=== PATIENT | female | born 1935 | race Caucasian/White ===

== ENCOUNTER → 2016-04-12 | Outpatient (CLI) | payer MEDICARE ==
[~2016-04-12] MED LIST: ALBU1AER INH; APIX5TAB PO; ATEN1TAB73 PO; ATEN25TA PO; COZA50TA PO; CYAN100015 PO; FISHCAP4 PO; FORT600S; GABA300C3 PO; GABA600T PO; HYDR12.56 PO; LACTCAP8 PO; MODU550 PO; MONT10TA2 PO; OMEG100010 PO; OMEGCAP PO; OYST1TAB PO; OYST500T71 PO; POTA-267 PO; PROT40TA PO; SIMV40TA PO; ST JTAB PO; SULF1TAB47 PO; TEMA30CA PO; TRAM50TA PO; VITA2000 PO; VITA250T3 PO; ZOLE5INJ IV
[2016-04-12 09:14] LABS: HEMATOCRIT 36.7 % (35.0-46.0); MEAN CELL VOLUME 93.2 FL (80.0-100.0); MEAN CORPUSCULAR HEMOGLOBIN 32.4 PG (27.0-34.0); MEAN CORPUSCULAR HGB CONC 34.7 % (32.0-36.0); PLATELET COUNT 231 TH/MM3 (150-450); RED BLOOD COUNT 3.94 MIL/MM3 (4.00-5.30); RED CELL DISTRIBUTION WIDTH 12.9 % (11.6-17.2); REVIEW FLAG FINAL; WHITE BLOOD COUNT 5.1 TH/MM3 (4.0-11.0)
[2016-04-12 09:46] LABS: ALKALINE PHOSPHATASE 71 U/L (45-117); ALT (GPT) 18 U/L (10-53); ANION GAP 7 MEQ/L (5-15); AST (GOT) 24 U/L (15-37); BICARBONATE 30.4 MEQ/L (21.0-32.0); BLOOD UREA NITROGEN 7 MG/DL (7-18); CHLORIDE 101 MEQ/L (98-107); GLOMERULAR FILTRATION RATE 95 ML/MIN (>89); GLUCOSE,FASTING 66 MG/DL (74-99); HDL CHOLESTEROL 69.7 MG/DL (40.0-60.0); LDL CHOLESTEROL 48 MG/DL (0-99); LDL CHOLESTEROL DIRECT 62 MG/DL (0-99); POTASSIUM 4.6 MEQ/L (3.5-5.1); SODIUM (NA) 138 MEQ/L (136-145); TOTAL BILIRUBIN ADULT 0.7 MG/DL (0.2-1.0)
[2016-04-12 11:10] LABS: BLOOD, URINE NEG (NEG); GLUCOSE,URINE NEG (NEG); HYALINE CAST, URINE 1 /lpf (RARE); KETONE, URINE NEG (NEG); MUCUS URINE FEW /lpf (OCC); NITRITE,URINE NEG (NEG); PH, URINE 7.5 (5.0-8.5); SQUAMOUS EPITHELIAL CELL URINE 1 /hpf (0-5); URINE COLOR LIGHT-YELLOW (YELLW/STRAW)
== END ==
LOC: PLAB 07:36
PROVIDERS: ATTEND Family Medicine
DX: E89.89 Other postprocedural endocrine and metabolic complications and disorders (principal); E78.2 Mixed hyperlipidemia; I10 Essential (primary) hypertension
CPT/HCPCS: 36415; 80053; 80061; 81001; 83721; 85027

== ENCOUNTER → 2016-07-14 | Outpatient (CLI) | payer MEDICARE ==
[2016-07-14 14:13] LABS: ALT (GPT) 19 U/L (10-53); ANION GAP 7 MEQ/L (5-15); AST (GOT) 27 U/L (15-37); BICARBONATE 30.2 MEQ/L (21.0-32.0); BLOOD UREA NITROGEN 4 MG/DL (7-18); CHLORIDE 93 MEQ/L (98-107); GLOMERULAR FILTRATION RATE 122 ML/MIN (>89); GLUCOSE,FASTING 72 MG/DL (74-99); POTASSIUM 4.1 MEQ/L (3.5-5.1); SODIUM (NA) 130 MEQ/L (136-145)
[2016-07-14 14:16] LABS: ALKALINE PHOSPHATASE 76 U/L (45-117); TOTAL BILIRUBIN ADULT 0.5 MG/DL (0.2-1.0)
[2016-07-21 11:53] LABS: N-TELOPEPTIDE NTX 11 nmol/mmo (4-64)
== END ==
LOC: PLAB 10:37
PROVIDERS: ATTEND Internal Medicine Endocrinology, Diabetes & Metabolism
DX: E55.9 Vitamin D deficiency, unspecified (principal); M81.0 Age-related osteoporosis without current pathological fracture
CPT/HCPCS: 36415; 80053; 82306; 82523

== ENCOUNTER → 2016-10-25 | Outpatient (CLI) | payer MEDICARE ==
[~2016-10-25] MED LIST changes: +ALBUAER3 INH; +AMIL5 PO; -ATEN1TAB73 PO; +CALC500T37 PO; -FORT600S; -GABA300C3 PO; -HYDR12.56 PO; +LOSA100T PO; +MONT10TA4 PO; -OMEG100010 PO; -OYST500T71 PO; -POTA-267 PO; -PROT40TA PO; -ST JTAB PO; -SULF1TAB47 PO; +TYLE325T PO; +VITA100021 SL
[2016-10-25 10:55] LABS: AUTOMATED NEUTROPHIL # 3.4 TH/MM3 (1.8-7.7); BASOPHIL % 0.9 % (0.0-2.0); EOSINOPHIL # 0.2 TH/MM3 (0-0.4); EOSINOPHIL % 3.6 % (0.0-4.0); HEMATOCRIT 35.9 % (35.0-46.0); HEMO FLAGS DIFF FINAL; LYMPH % 18.3 % (9.0-44.0); LYMPHOCYTE # 0.9 TH/MM3 (1.0-4.8); MEAN CELL VOLUME 94.6 FL (80.0-100.0); MEAN CORPUSCULAR HEMOGLOBIN 31.6 PG (27.0-34.0); MEAN CORPUSCULAR HGB CONC 33.4 % (32.0-36.0); MONO % 8.9 % (0.0-8.0); NEUT % 68.3 % (16.0-70.0); PLATELET COUNT 315 TH/MM3 (150-450); RED BLOOD COUNT 3.79 MIL/MM3 (4.00-5.30); RED CELL DISTRIBUTION WIDTH 13.4 % (11.6-17.2); WHITE BLOOD COUNT 4.9 TH/MM3 (4.0-11.0)
[2016-10-25 11:14] LABS: ANION GAP 7 MEQ/L (5-15); AST (GOT) 19 U/L (15-37); BICARBONATE 28.2 MEQ/L (21.0-32.0); BLOOD UREA NITROGEN 10 MG/DL (7-18); CHLORIDE 99 MEQ/L (98-107); GLOMERULAR FILTRATION RATE 112 ML/MIN (>89); GLUCOSE,FASTING 76 MG/DL (74-99); POTASSIUM 4.3 MEQ/L (3.5-5.1); SODIUM (NA) 134 MEQ/L (136-145)
[2016-10-25 11:19] LABS: ALKALINE PHOSPHATASE 72 U/L (45-117); ALT (GPT) 13 U/L (10-53); HDL CHOLESTEROL 52.1 MG/DL (40.0-60.0); LDL CHOLESTEROL 49 MG/DL (0-99); TOTAL BILIRUBIN ADULT 0.4 MG/DL (0.2-1.0)
== END ==
LOC: PLAB 08:54
PROVIDERS: ATTEND Family Medicine
DX: E78.5 Hyperlipidemia, unspecified (principal); I10 Essential (primary) hypertension; E83.42 Hypomagnesemia
CPT/HCPCS: 36415; 80053; 80061; 83735; 85025

== ENCOUNTER → 2016-10-26 | Outpatient (CLI) | payer MEDICARE ==
[2016-10-26 18:19] LABS: RHEUMATOID FACTOR TRIGGER 13.6 IU/ML (0.0-14.9)
== END ==
LOC: PLAB 14:41
PROVIDERS: ATTEND Family Medicine
DX: G25.0 Essential tremor (principal); R53.83 Other fatigue; I10 Essential (primary) hypertension; M06.4 Inflammatory polyarthropathy
CPT/HCPCS: 36415; 84443; 85652; 86140; 86200; 86430

== ENCOUNTER 2016-12-21 14:06 | Emergency (ER) | payer MEDICARE ==
[~2016-12-21] VITALS: Ht 154.9 cm; Wt 58.0 kg
[~2016-12-21 14:06] MED LIST changes: -ALBUAER3 INH; -AMIL5 PO; -CALC500T37 PO; -FISHCAP4 PO; -LOSA100T PO; -MONT10TA4 PO; -TYLE325T PO; -VITA100021 SL
[2016-12-21 14:36] VITALS: BP 134/64; PULSE 88; RESP 16; TEMP 99.5; O2SAT 96
--- NOTE | 2016-12-21 16:05 | PD ---
HPI Chief Complaint: right leg pain Time Seen by Provider: 15:52 Travel History International Travel<30 days: No Contact w/Intl Traveler<30days: No Traveled to known affect area: No History of Present Illness HPI 81yo F with PMH on left DVT on eliquis, arthritis in bilateral knees presents to the ED with c/o right leg pain. States she has posterior right leg and knee for 3 days. Also noticed swelling in right knee for 1.5 days. States she has severe arthritis in right knee and has been cleaning more rigorous recently. Denies any fever, trauma, chest pain, sob, n/v, abdominal pain, focal weakness or numbness. PFSH Past Medical History Hx Anticoagulant Therapy: Yes Arthritis: Yes Asthma: Yes Autoimmune Disease: No Blood Disorders: No Anxiety: Yes Depression: Yes Heart Rhythm Problems: No Cancer: Yes (LUNG) Cardiovascular Problems: Yes (htn on meds, a-fib) High Cholesterol: Yes Chemotherapy: No Chest Pain: No Congestive Heart Failure: No COPD: Yes Cerebrovascular Accident: Yes (tia's) Diabetes: No Diminished Hearing: No Endocrine: No Gastrointestinal Disorders: Yes (BLEEDING ULCERS,DIVERTICULITIS,HEMORRHOIDS) GERD: Yes Glaucoma: No Genitourinary: No Headaches: No Hepatitis: No Hiatal Hernia: Yes Hypertension: Yes Immune Disorder: No Kidney Stones: No Musculoskeletal: Yes Neurologic: Yes (PERIPHERAL NEUROPATHY) Psychiatric: Yes Reproductive: No Respiratory: Yes Immunizations Current: Yes Migraines: No Myocardial Infarction: No Radiation Therapy: No Renal Failure: No Seizures: No Sleep Apnea: No Thyroid Disease: No Ulcer: Yes Influenza Vaccination: Yes ?: Not Menopausal: Yes Past Surgical History Abdominal Surgery: No AICD: No Appendectomy: No Arteriovenous Shunt: No Cardiac Surgery: No Cholecystectomy: No Ear Surgery: No Endocrine Surgery: No Eye Surgery: No Genitourinary Surgery: No Gynecologic Surgery: No Insulin Pump: No Joint Replacement: No Oral Surgery: No Pacemaker: No Thoracic Surgery: Yes (RIGHT UPPER LOBECTOMY) Other Surgery: Yes (HAND SURGERY AND FOOT SURGERY FOR NEUROMA REMOVAL MANY YEARS AGO) Social History Alcohol Use: No Tobacco Use: No Substance Use: No Allergies-Medications (Allergen,Severity, Reaction): Coded Allergies: cefaclor (Unverified Allergy, Severe, HIVES, 12/21/16) hives Reported Meds & Prescriptions Reported Meds & Active Scripts Active Reported Fish Oil + D3 (Fish Oil-Cholecalciferol) 1,200-1,000 Mg-Unit Cap 1 Cap PO DAILY Vitamin B-12 (Cyanocobalamin) 1,000 Mcg Subl 1,000 Mcg SL DAILY Calcium Ascorbate 500 Mg Tab 500 Mg PO DAILY Montelukast (Montelukast Sodium) 10 Mg Tab 10 Mg PO HS Tramadol (Tramadol HCl) 50 Mg Tab 50 Mg PO Q4H PRN Temazepam 30 Mg Cap 30 Mg PO HS PRN Simvastatin 40 Mg Tab 40 Mg PO HS Proair Hfa 8.5 GM Inh (Albuterol Sulfate) 90 Mcg/Act Aer 1 Puff INH Q4H PRN 108 mcg/actuation Losartan (Losartan Potassium) 100 Mg Tab 100 Mg PO DAILY Gabapentin 600 Mg Tab 600 Mg PO TID Eliquis (Apixaban) 5 Mg Tab 5 Mg PO BID Atenolol 25 Mg Tab 12.5 Mg PO DAILY Amiloride (Amiloride HCl) 5 Mg Tab 5 Mg PO DAILY Vitamin D3 (Cholecalciferol) 2,000 Unit Cap 2,000 Units PO DAILY Review of Systems Except as stated in HPI: all other systems reviewed are Neg Physical Exam Narrative GENERAL: 81yo F in mild distress. SKIN: Focused skin assessment warm/dry. HEAD: Atraumatic. Normocephalic. CARDIOVASCULAR: Regular rate and rhythm. No murmur appreciated. RESPIRATORY: No accessory muscle use. Clear to auscultation. Breath sounds equal bilaterally. GASTROINTESTINAL: Abdomen soft, non-tender, nondistended. MUSCULOSKELETAL: RLE: +TTP posterior thigh and calf. Right knee: +Warmth to touch, no erythema. +Effusion. +TTP diffusely. Distal pulses intact. Sensation intact. NEUROLOGICAL: Awake and alert. No obvious cranial nerve deficits. Motor grossly within normal limits. Normal speech. PSYCHIATRIC: Appropriate mood and affect; insight and judgment normal. Data Data Last Documented VS Vital Signs Date Time Temp Pulse Resp B/P (MAP) Pulse Ox O2 Delivery O2 Flow Rate FiO2 12/21/16 17:34 82 18 133/68 (89) 96 Room Air 12/21/16 14:36 99.5 Orders Orders Us Leg Venous Doppler (12/21/16 ) Knee, Ltd (1 Or 2vws) (12/21/16 ) Acetamin-Hydrocod 325-5 Mg ([place] 5-325 (12/21/16 17:45) [facility] Medical Decision Making Medical Screen Exam Complete: Yes Emergency Medical Condition: Yes Differential Diagnosis DVT vs. musculoskeletal pain vs. wolfe cyst vs. arthritis vs. ligament injury Narrative Course 81yo F with arthritis in her knees and history of DVT here with right leg pain. Xray right knee showed joint effusion with degenerative changes. No fracture. US right leg showed no venous thrombosis. 4.5 center popliteal cyst. Pt given lortab and reevaluated at bedside. Said knee pain has improved. Pt able to move right knee more. Pt has orthopedic surgeon to followup with. Instructed pt to return immediately if fever, worsening pain, redness or any signs of infection. Pt wants to go home. Diagnosis Primary Impression: Knee pain, acute Qualified Codes: M25.561 - Pain in right knee Patient Instructions: General Instructions Departure Forms: Tests/Procedures Additional Instructions: Please follow up with your primary care physician or orthopedic surgeon in 1-2 days. Return to the ED if symptoms worsen. Med/Other Pt SpecificInfo: Prescription(s) given Scripts Acetaminophen (Tylenol) 325 Mg Tab 650 MG PO Q6H Y for PAIN SCALE 1 TO 4, #20 TAB 0 Refills Prov: Betzy Dunbar 12/21/16 Disposition: 01 DISCHARGE HOME Condition: Stable Betzy Dunbar DO Dec 21, 2016 16:05
[2016-12-21] MEDS ORDERED: TRAM50TA PO (16:08)
[2016-12-21] MEDS ORDERED: LOSA100T PO (16:08)
[2016-12-21] MEDS ORDERED: GABA600T PO (16:08)
[2016-12-21] MEDS ORDERED: SIMV40TA PO (16:08)
[2016-12-21] MEDS ORDERED: MONT10TA4 PO (16:08)
[2016-12-21] MEDS ORDERED: AMIL5 PO (16:08)
[2016-12-21] MEDS ORDERED: TEMA30CA PO (16:08)
[2016-12-21] MEDS ORDERED: ATEN25TA PO (16:08)
[2016-12-21] MEDS ORDERED: APIX5TAB PO (16:08)
[2016-12-21] MEDS ORDERED: CALC500T37 PO (16:08)
[2016-12-21] MEDS ORDERED: ALBUAER3 INH (16:08)
[2016-12-21] MEDS ORDERED: VITA100021 SL (16:09)
[2016-12-21] MEDS ORDERED: FISHCAP4 PO (16:09)
--- NOTE | 2016-12-21 17:10 | RADRPT ---
EXAM DATE/TIME: 12/21/2016 16:32 [facility] COMPARISON: No previous studies available for comparison. INDICATIONS : Right knee pain from unknown injury. MEDICAL HISTORY : None. SURGICAL HISTORY : None. ENCOUNTER: Initial ACUITY: 3 days PAIN SCORE: 7/10 LOCATION: Right knee. FINDINGS: Large joint effusion is evident. Degenerative changes are present in the patellofemoral compartment. There is marked loss of articular cartilage in the medial compartment. Fracture not appreciated. CONCLUSION: Joint effusion with degenerative changes. No fracture. Rigoberto Miranda MD FACR on December 21, 2016 at 17:08 Board Certified Radiologist. This report was verified electronically.
[2016-12-21 17:34] VITALS: BP 133/68; PULSE 82; RESP 18; O2SAT 96
--- NOTE | 2016-12-21 17:44 | RADRPT ---
EXAM DATE/TIME: 12/21/2016 17:09 [facility] COMPARISON: No previous studies available for comparison. INDICATIONS : Right leg pain. MEDICAL HISTORY : Hypertension. Hypercholesterolemia. Diverticulitis. Peripheral neuropathy. CVA. COPD. Hiatal he rnia. GERD. Lung cancer. SURGICAL HISTORY : Right upper lobectomy. Bilateral parsons's neuroma and repair. ENCOUNTER: Subsequent ACUITY: 4 - 6 days PAIN SCORE: 10/10 LOCATION: Right leg. TECHNIQUE: Venous ultrasound of the leg was performed from the inguinal ligament to the proximal calf. Real-haylee e, color Doppler and spectral tracing, compression and augmentation techniques were used. FINDINGS: There is normal compressibility of the deep venous system from the inguinal region to the proximal ca lf. No echogenic clot is seen in the lumen of the common femoral, femoral, popliteal, and posterior tibial veins. There is a normal response of the venous system to proximal and distal augmentation an d respiration. 4.5 cm popliteal cyst. CONCLUSION: No venous thrombosis. 4.5 center popliteal cyst. Rigoberto Miranda MD FACR on December 21, 2016 at 17:43 on December 21, 2016 at 17: Board Certified Radiologist. This report was verified electronically.
[2016-12-21] MEDS ORDERED: ACETAMINOPHEN/HYDROcodone 325 MG/5 MG TAB PO ONE (17:45)
[2016-12-21] MEDS ORDERED: TYLE325T PO (18:30)
[2016-12-21 18:45] VITALS: RESP 18
== END 2016-12-21 18:50 | disposition home or self-care (01) ==
LOC: PHED 14:06
DX: M25.561 Pain in right knee (principal); M17.0 Bilateral primary osteoarthritis of knee; I48.91 Unspecified atrial fibrillation; I10 Essential (primary) hypertension; Z79.01 Long term (current) use of anticoagulants; Z79.899 Other long term (current) drug therapy
CPT/HCPCS: 73560; 93971; 99284

== ENCOUNTER → 2017-01-02 | Outpatient (CLI) | payer MEDICARE ==
[~2017-01-02] MED LIST changes: -ALBU1AER INH; +ALBUAER3 INH; +AMIL5 PO; +CALC500T37 PO; -COZA50TA PO; -CYAN100015 PO; +FISHCAP4 PO; -LACTCAP8 PO; +LOSA100T PO; -MODU550 PO; -MONT10TA2 PO; +MONT10TA4 PO; -OMEGCAP PO; -OYST1TAB PO; +TYLE325T PO; +VITA100021 SL; -VITA250T3 PO; -ZOLE5INJ IV
[2017-01-02 16:38] LABS: ALT (GPT) 16 U/L (10-53); ANION GAP 6 MEQ/L (5-15); AST (GOT) 23 U/L (15-37); BICARBONATE 28.5 MEQ/L (21.0-32.0); BLOOD UREA NITROGEN 8 MG/DL (7-18); CHLORIDE 100 MEQ/L (98-107); GLOMERULAR FILTRATION RATE 119 ML/MIN (>89); POTASSIUM 4.8 MEQ/L (3.5-5.1); SODIUM (NA) 134 MEQ/L (136-145)
[2017-01-02 16:40] LABS: ALKALINE PHOSPHATASE 82 U/L (45-117); TOTAL BILIRUBIN ADULT 0.5 MG/DL (0.2-1.0)
== END ==
LOC: PLAB 13:20
PROVIDERS: ATTEND Internal Medicine Endocrinology, Diabetes & Metabolism
DX: E55.9 Vitamin D deficiency, unspecified (principal); M81.0 Age-related osteoporosis without current pathological fracture
CPT/HCPCS: 36415; 80053; 82306

== ENCOUNTER → 2017-04-18 | Outpatient (CLI) | payer MEDICARE ==
[~2017-04-18] MED LIST changes: +MIDAZOLAM HCL 2 MG/2 ML VIAL ONE
[2017-04-18 10:27] LABS: AUTOMATED NEUTROPHIL # 3.3 TH/MM3 (1.8-7.7); BASOPHIL % 0.8 % (0.0-2.0); EOSINOPHIL # 0.3 TH/MM3 (0-0.4); EOSINOPHIL % 4.8 % (0.0-4.0); HEMATOCRIT 35.1 % (35.0-46.0); HEMOGLOBIN 12.1 GM/DL (11.6-15.3); LYMPH % 30.2 % (9.0-44.0); LYMPHOCYTE # 1.7 TH/MM3 (1.0-4.8); MEAN CELL VOLUME 92.1 FL (80.0-100.0); MEAN CORPUSCULAR HEMOGLOBIN 31.6 PG (27.0-34.0); MEAN CORPUSCULAR HGB CONC 34.3 % (32.0-36.0); MEAN PLATELET VOLUME 8.1 FL (7.0-11.0); MONO % 7.4 % (0.0-8.0); MONOCYTE # 0.4 TH/MM3 (0-0.9); NEUT % 56.8 % (16.0-70.0); PLATELET COUNT 266 TH/MM3 (150-450); RED BLOOD COUNT 3.81 MIL/MM3 (4.00-5.30); RED CELL DISTRIBUTION WIDTH 13.7 % (11.6-17.2); WHITE BLOOD COUNT 5.7 TH/MM3 (4.0-11.0)
[2017-04-18 10:44] LABS: BILIRUBIN, URINE NEG (NEG); BLOOD, URINE NEG (NEG); GLUCOSE,URINE NEG (NEG); HYALINE CAST, URINE 3 /lpf (RARE); KETONE, URINE NEG (NEG); NITRITE,URINE NEG (NEG); SQUAMOUS EPITHELIAL CELL URINE <1 /hpf (0-5); URINE COLOR YELLOW (YELLW/STRAW); URINE LEUKOCYTE ESTERASE NEG (NEG)
[2017-04-18 10:51] LABS: ALBUMIN 2.8 GM/DL (3.4-5.0); AST (GOT) 23 U/L (15-37); BICARBONATE 29.4 MEQ/L (21.0-32.0); BLOOD UREA NITROGEN 7 MG/DL (7-18); CALCIUM 8.9 MG/DL (8.5-10.1); CREATININE 0.53 MG/DL (0.50-1.00); GLOMERULAR FILTRATION RATE 111 ML/MIN (>89); GLUCOSE,FASTING 56 MG/DL (74-99)
[2017-04-18 10:52] LABS: CHOLESTEROL 109 MG/DL (120-200)
[2017-04-18 10:57] LABS: ALKALINE PHOSPHATASE 89 U/L (45-117); ALT (GPT) 13 U/L (10-53); CHLORIDE 105 MEQ/L (98-107); CHOLESTEROL/ HDL RATIO 2.33 RATIO; HDL CHOLESTEROL 46.6 MG/DL (40.0-60.0); LDL CHOLESTEROL 48 MG/DL (0-99); LDL CHOLESTEROL DIRECT 63 MG/DL (0-99); SODIUM (NA) 139 MEQ/L (136-145); TOTAL BILIRUBIN ADULT 0.5 MG/DL (0.2-1.0); TRIGLYCERIDES 73 MG/DL (42-150)
== END ==
LOC: PLAB 07:56
PROVIDERS: ATTEND Internal Medicine Endocrinology, Diabetes & Metabolism
DX: M81.0 Age-related osteoporosis without current pathological fracture (principal); E55.9 Vitamin D deficiency, unspecified; E78.5 Hyperlipidemia, unspecified; I10 Essential (primary) hypertension
CPT/HCPCS: 36415; 80053; 80061; 81001; 82306; 83721; 85025

== ENCOUNTER → 2017-04-21 | Outpatient (CLI) | payer MEDICARE ==
[~2017-04-21] MED LIST changes: -MIDAZOLAM HCL 2 MG/2 ML VIAL ONE
[2017-04-21 14:22] LABS: BICARBONATE 30.2 MEQ/L (21.0-32.0); CALCIUM 9.3 MG/DL (8.5-10.1); CREATININE 0.56 MG/DL (0.50-1.00)
== END ==
LOC: PLAB 10:52
PROVIDERS: ATTEND Family Medicine
DX: N18.3 Chronic kidney disease, stage 3 (moderate) (principal)
CPT/HCPCS: 36415; 80048; 82570; 84156

== ENCOUNTER → 2017-05-09 | Outpatient (CLI) | payer MEDICARE | LOC: PLAB 11:37 | PROVIDERS: ATTEND Internal Medicine Endocrinology, Diabetes & Metabolism | DX: E83.42 Hypomagnesemia (principal) | CPT/HCPCS: 36415; 83735 ==

== ENCOUNTER 2017-07-12 06:33 | Day surgery (SDC) | payer MEDICARE ==
[2017-07-12] VITALS (11 sets, daily range): BP systolic 110–143; BP diastolic 52–73; PULSE 58–69; RESP 16–19; TEMP 97.8–97.9; O2SAT 61–98
[~2017-07-12] VITALS: Ht 157.5 cm; Wt 55.5 kg
[2017-07-12] MEDS ORDERED: SODIUM CHLOR 0.9% 1000 ML INJ 1,000 ML IV ONE (07:45)
[2017-07-12] MEDS ORDERED: SODIUM CHLOR 0.9% 1000 ML INJ 1,000 ML IV SCH (07:45)
[2017-07-12] MEDS ORDERED: ROPI0.25 PO (07:47)
[2017-07-12 08:11] LABS: AUTOMATED NEUTROPHIL # 5.4 TH/MM3 (1.8-7.7); BASOPHIL # 0.1 TH/MM3 (0-0.2); BASOPHIL % 0.7 % (0.0-2.0); EOSINOPHIL # 0.2 TH/MM3 (0-0.4); EOSINOPHIL % 2.9 % (0.0-4.0); HEMATOCRIT 35.6 % (35.0-46.0); HEMOGLOBIN 12.2 GM/DL (11.6-15.3); LYMPH % 17.7 % (9.0-44.0); LYMPHOCYTE # 1.3 TH/MM3 (1.0-4.8); MEAN CELL VOLUME 91.1 FL (80.0-100.0); MEAN CORPUSCULAR HEMOGLOBIN 31.2 PG (27.0-34.0); MEAN CORPUSCULAR HGB CONC 34.3 % (32.0-36.0); MEAN PLATELET VOLUME 7.6 FL (7.0-11.0); MONO % 6.2 % (0.0-8.0); MONOCYTE # 0.5 TH/MM3 (0-0.9); NEUT % 72.5 % (16.0-70.0); PLATELET COUNT 255 TH/MM3 (150-450); RED BLOOD COUNT 3.91 MIL/MM3 (4.00-5.30); RED CELL DISTRIBUTION WIDTH 13.8 % (11.6-17.2); WHITE BLOOD COUNT 7.5 TH/MM3 (4.0-11.0)
[2017-07-12 08:21] LABS: BICARBONATE 29.2 MEQ/L (21.0-32.0); CALCIUM 9.1 MG/DL (8.5-10.1); CREATININE 0.55 MG/DL (0.50-1.00)
[2017-07-12 08:52] LABS: INTERNATIONAL NORMALIZED RATIO 1.1 RATIO; PROTHROMBIN TIME - PATIENT 10.8 SEC (9.8-11.6)
[2017-07-12] MEDS ORDERED: fentaNYL CITRATE 250 MCG/5 ML AMP ONE (09:04)
[2017-07-12] MEDS ORDERED: MIDAZOLAM HCL 5 MG/5 ML VIAL ONE (09:04)
[2017-07-12] MEDS ORDERED: diphenhydrAMINE HCL 50 MG/ML VIAL ONE (09:25)
[2017-07-12] MEDS ORDERED: HEPARIN SODIUM - IV 10,000 UNITS/10 ML VIAL ONE (09:57)
[2017-07-12] MEDS ORDERED: IODIXANOL 320 MG/ML 50 ML VIAL (for RAD SPEC) I-ARTERIAL ONE (10:00)
[2017-07-12] MEDS ORDERED: ceFAZolin 2 GM PREMIX 50 ML ONE (10:09)
--- NOTE | 2017-07-12 10:30 | PD.RAD ---
Post Procedure Progress Note Pre Procedure Diagnosis: (1) Postprandial abdominal pain in right upper quadrant Post Procedure Diagnosis: (1) SMA stenosis (2) Postprandial abdominal pain in right upper quadrant Procedure Date: July 12, 2017 Supervising Radiologist: Robert Galindo Proceduralist/Assist: Joseline Yarbrough, RT(R)(), Emma Sylvester RT(R), Other (Ramin) Anesthesia: Local, Analgesia, Conscious Sedation Plan of Activity Patient to Unit: ROPU Patient Condition: Good See PACS Report for procedural detail/treatment Vascular-Arterial Procedure Procedure 1 Procedure Site: Superior Mesenteric Artery Procedure(s): Angiogram, Stent Placement (7mm x 3cm) Access Access Site(s): Right Femoral Artery Closure Site(s): Right vascular closure device (PerClose) Findings: High grade central stenosis SMA. Post 7mm stent and 6mm ENT CONSULTANT Robert Galindo MD July 12, 2017 10:30
--- NOTE | 2017-07-12 11:33 | RADRPT ---
EXAM DATE/TIME: 07/12/2017 09:31 [facility] COMPARISON: No previous studies available for comparison. INDICATIONS : Patient with a history of abdominal pain and nausea. MEDICAL HISTORY : TIA CAD Asthma COPD Emphysema GERD HTN Osteoporosis SURGICAL HISTORY : Lobectomy Colonoscopy EGD ENCOUNTER: Initial ACUITY: 2 weeks PAIN SCORE: 0/10 FLUORO TIME: 9.6 minutes IMAGE SERIES: 17 ACCESS SITE: Right Femoral artery SEDATION TIME: 60 minutes CONTRAST: 1.) 120 cc Visipaque (iodixanol) MEDICATION(S): 1.) 2.5 mg midazolam (Versed) IV 2.) 125 mcg fentanyl (Sublimaze) IV 3.) 2,000 units Heparin IV 4.) 2 g cefazolin (Ancef) IV Intra-procedural antibiotics were given as prescribed above. DEVICE(S): 1.) Superior mesenteric artery [id number] Proteg stent (self expanding) 2.) Superior mesenteric artery [id number] Supervisor [employer] ADMINISTRATOR balloon 3.) Right common femoral artery Perclose PROCEDURE : 1. Ultrasound-guided puncture of the access site. 2. Angiography of the access site prior to closure device. 3. Conscious sedation with continuous EKG and Oximetry monitoring. 4. Percutaneous closure of the access site. 5. Angiography of the celiac axis 6. Angiography of the SMA 7. Central stent, SMA The risks, benefits and alternatives to the procedure were explained and verbal and written consent w as obtained. The site was prepped in sterile fashion. Full sterile technique was used, including ca p, mask, sterile gloves and gown and a large sterile sheet. Hand hygiene and 2% chlorhexidine and/or betadine/alcohol prep was utilized per protocol for cutaneous antisepsis. Sterile gel and sterile p robe cover were utilized for ultrasound guidance. The skin and subcutaneous tissues were infiltrated with local anesthetic solution. With ultrasound and fluoroscopic guidance the selected artery was punctured and a vascular sheath was placed. Angiography of the common femoral artery was performed for evaluation prior to percutaneous closure device placement. A hook catheter was used to select the origin of the celiac axis. Contrast injection showed the branc h vessels of the celiac all be widely patent no significant stenosis. Catheter was then manipulated i nto the SMA. Contrast injection confirmed a proximal, non-ostial high grade stenosis of the SMA. Glid ewire was advanced out into the SMA distribution to facilitate advancement of the hook catheter into the distal branch of the SMA. Wire was exchanged for a Grimaldo to facilitate placement of the 7 Stateless Rabbe sheath which was advanced into the origin of the SMA. In a lateral projection, contrast injection again showed a high grade nonostial stenosis of the SMA. Through the sheath and over the wire, a 7 mm x 30 mm self-expanding Proteg stent was advanced across the stenosis. Position was confirmed with positive contrast. Stent was deployed and balloon dilated to 6 mm with an excellent angiographic result. Patency was confirmed with positive contrast. Hemostasis was obtained with the prescribed medicated closure device. Conscious sedation was perform ed with the prescribed dosages and duration as above in the presence of an independent trained radiol ogy nurse to assist in the monitoring of the patient. EKG and oximetry remained stable throughout th e procedure. CONCLUSION: 1. Long segment, high-grade nonostial stenosis of the SMA. Celiac is patent. 2. Successful stenting of the stenotic SMA as detailed above. Robert Galindo MD on July 12, 2017 at 11:23 Board Certified Radiologist. This report was verified electronically.
[2017-07-12] MEDS ORDERED: CLOPIDOGREL 300 MG TAB PO ONE (13:30)
== END 2017-07-12 15:23 | disposition home or self-care (01) ==
LOC: HROP 06:33 → HRIP 06:38 → HROP 15:23
PROVIDERS: ATTEND Physician Assistant Medical
DX: K55.1 Chronic vascular disorders of intestine (principal); R11.0 Nausea; R10.11 Right upper quadrant pain; I25.10 Atherosclerotic heart disease of native coronary artery without angina pectoris; J44.9 Chronic obstructive pulmonary disease, unspecified; K21.9 Gastro-esophageal reflux disease without esophagitis; I10 Essential (primary) hypertension; M81.0 Age-related osteoporosis without current pathological fracture; Z86.73 Personal history of transient ischemic attack (TIA), and cerebral infarction without residual deficits; Z01.818 Encounter for other preprocedural examination
CPT/HCPCS: 36245; 37236; 75726; 75774; 76937; 80048; 85025; 85610; 85730; 99152; 99153; C1725; C1760; C1769; C1876; C1887; C1894; J0690; J1200; J1644; J2250; J3010; J7030; Q9967

== ENCOUNTER 2017-07-19 13:41 | Day surgery (SDC) | payer MEDICARE ==
[~2017-07-19 13:41] MED LIST changes: +ROPI0.25 PO; -TYLE325T PO
[2017-07-19 13:56] VITALS: BP 133/62; PULSE 59; RESP 18; TEMP 97.6; O2SAT 100
--- NOTE | 2017-07-19 15:24 | RADRPT ---
EXAM DATE/TIME: 07/19/2017 14:00 [facility] COMPARISON : No previous studies available for comparison. INDICATIONS : F/U mesenteric stent placement OBJECTIVE: Temperature: 97.6 Heart Rate: 59 Blood Pressure: 133/62 Respiratory: 18 Oximetry: 100 PNEUMONIA VACCINE: HISTORY OF PRESENT ILLNESS: 81-year-old with postprandial abdominal pain, high grade SMA stenosis recently post stent. Patient re ports no significant improvement in clinical symptoms after stent placement. No new complaints. ASSESSMENT: Patient doing well post SMA stent placement from a procedural standpoint. However, no significant imp rovement in the postprandial abdominal pain. PLAN: Followup with primary as clinically indicated. TIME SPENT: Zero minutes. Patient seen by nurse only. Robert Galindo MD on July 19, 2017 at 15:17 Board Certified Radiologist. This report was verified electronically.
== END 2017-07-19 15:16 | disposition home or self-care (01) ==
LOC: HROP 13:41 → HRIP 13:43 → HROP 15:16
PROVIDERS: ATTEND Radiology Body Imaging
DX: K55.1 Chronic vascular disorders of intestine (principal)
CPT/HCPCS: 99211; G0463

== ENCOUNTER → 2017-08-28 | Outpatient (CLI) | payer MEDICARE ==
[2017-08-28 17:49] LABS: ALBUMIN 2.9 GM/DL (3.4-5.0); AST (GOT) 16 U/L (15-37); BLOOD UREA NITROGEN 6 MG/DL (7-18); CALCIUM 9.2 MG/DL (8.5-10.1); CHLORIDE 102 MEQ/L (98-107); CREATININE 0.66 MG/DL (0.50-1.00); GLOMERULAR FILTRATION RATE 86 ML/MIN (>89); GLUCOSE,RANDOM 97 MG/DL (74-106); SODIUM (NA) 137 MEQ/L (136-145)
[2017-08-28 17:51] LABS: ALT (GPT) 17 U/L (10-53)
[2017-08-28 17:53] LABS: ALKALINE PHOSPHATASE 89 U/L (45-117); TOTAL BILIRUBIN ADULT 0.4 MG/DL (0.2-1.0); TOTAL PROTEIN 7.4 GM/DL (6.4-8.2)
== END ==
LOC: PLAB 13:54
PROVIDERS: ATTEND Internal Medicine Endocrinology, Diabetes & Metabolism
DX: M81.0 Age-related osteoporosis without current pathological fracture (principal)
CPT/HCPCS: 36415; 80053

== ENCOUNTER 2017-09-16 17:34 | Observation (INO) ==
[2017-09-16] MEDS ORDERED: dilTIAZem 30 MG Tablet PO ONE (17:55)
--- NOTE | 2017-09-16 17:55 | ED ---
HPI General Chief complaint: Chest Pain Stated complaint: Cardiac Complaint Time Seen by Provider: 09/16/17 17:49 History of Present Illness HPI narrative: Patient 81-year-old female presents emergency department for a choking sensation in her neck radiating down into her chest. Patient states it started early this morning, she sat down she took her blood pressure and was fine heart rate was fine, when it recurred this afternoon she took her heart rate and found to be in the 160s, she has been taking her Cardizem or Eliquis and her Plavix as prescribed. 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 Mesenteric artery, no dizziness no nausea vomiting no headache no fever. Related Data Home Medications Medication Instructions Recorded Confirmed amiloride 5 mg PO DAILY 09/12/17 09/12/17 apixaban [Eliquis] 5 mg PO BID 09/12/17 09/12/17 ascorbic acid (vitamin C) [Vitamin 250 mg PO DAILY 09/12/17 09/12/17 C] atenolol 12.5 mg PO DAILY 09/12/17 09/12/17 atorvastatin 20 mg PO DAILY 09/12/17 09/12/17 calcium carbonate-vit D3-min 1 tab PO DAILY 09/12/17 09/12/17 [Calcium 600 + Minerals] clopidogrel [Plavix] 75 mg PO DAILY 09/12/17 09/12/17 diltiazem HCl 180 mg PO DAILY 09/12/17 09/12/17 gabapentin 300 mg PO TID 09/12/17 09/12/17 losartan 50 mg PO DAILY 09/12/17 09/12/17 montelukast 10 mg PO QPM 09/12/17 09/12/17 ropinirole 24 mg PO DAILY PRN 09/12/17 09/12/17 temazepam 1 cap PO DAILY PRN 09/12/17 09/12/17 vitamin B complex [B 1 tab PO DAILY 09/12/17 09/12/17 Complex-Vitamin B12] zoledronic [id number] 5 mg IV DIRECTED 09/12/17 09/12/17 [Reclast] Allergies Allergy/AdvReac Type Severity Reaction Status Date / Time cefaclor Allergy Severe HIVES Verified 09/12/17 14:03 Review of Systems Except as stated in HPI: all other systems reviewed are negative PMFSH Medical History Medical History Asthma (Acute) COPD (chronic obstructive pulmonary disease) (Acute) Hyperlipemia (Acute) Hypertension (Acute) Lung cancer (Acute) Osteoarthritis (Acute) Osteoporosis (Acute) Social History Social History Substance History: No History of Abuse Second Hand Smoke Exposure: No Smoking Status: Never smoker How Often Do You Have a Drink Containing Alcohol: Never Recent Travel in [facility] within the Last 8 Weeks: No Recent Out of Country Travel within the Last 8 Weeks: No Immunization History Tetanus Immunization: <5 Years Hx Influenza Vaccine This Season: Yes Exam Narrative Exam Narrative: GENERAL: Well-developed well-nourished no obvious distress, quite pleasant peer SKIN: Focused skin assessment warm/dry. HEAD: Atraumatic. Normocephalic. EYES: Pupils equal and round. No scleral icterus. No injection or drainage. ENT: No nasal bleeding or discharge. Mucous membranes pink and moist. NECK: Trachea midline. No JVD. CARDIOVASCULAR: Irregularly irregular and tachycardic, 2+ bilateral equal pulses in all 4 extremities per no murmur appreciated. RESPIRATORY: No accessory muscle use. Clear to auscultation. Breath sounds equal bilaterally. GASTROINTESTINAL: Abdomen soft, non-tender, nondistended. Hepatic and splenic margins not palpable. MUSCULOSKELETAL: No obvious deformities. No clubbing. No cyanosis. Trace edema bilateral lower extremities. NEUROLOGICAL: Awake and alert. No obvious cranial nerve deficits. Motor grossly within normal limits. Normal speech. PSYCHIATRIC: Appropriate mood and affect; insight and judgment normal. Course Initial Documented Vital Signs Temperature 97.8 F 09/16/17 17:38 Pulse Rate 122 H 09/16/17 17:38 Respiratory Rate 15 09/16/17 17:38 Blood Pressure 139/58 L 09/16/17 17:38 Pulse Oximetry 98 09/16/17 17:38 Last Documented Vital Signs Temperature 97.8 F 09/16/17 17:38 Pulse Rate 119 H 09/16/17 17:42 Respiratory Rate 18 09/16/17 17:42 Blood Pressure 126/88 09/16/17 17:42 Pulse Oximetry 97 09/16/17 18:09 Medical Decision Making MDM Narrative Medical decision making narrative: Patient room to the emergency department, appears well in obvious distress, certainly her symptoms could be from ACS, was noted be atrial fibrillation RVR maximum rate in the ER was mid 120s, she was given additional dose of Cardizem 30 mg immediate release, seem to control her heart rate for the time being. Chest pain resolved, recommended patient be admitted for chest pain in the setting of atrial ablation RVR. Differential Diagnosis Differential Diagnosis: ACS, OH, atrial fibrillation RVR, electrolyte normality. Lab Data Result diagrams: 09/16/17 18:10 09/16/17 18:10 Lab Results 09/16/17 09/16/17 09/16/17 Range/Units 18:10 18:10 18:10 WBC 10.7 (4.0-11.0) th/mm3 RBC 3.63 L (4.00-5.30) mil/mm3 Hgb 11.6 (11.6-15.3) gm/dL Hct 33.5 L (35.0-46.0) % MCV 92.3 (80.0-100.0) fL MCH 31.9 (27.0-34.0) pg MCHC 34.6 (32.0-36.0) % RDW 14.2 (11.6-17.2) % Plt Count 382 (150-450) th/mm3 MPV 7.6 (7.0-11.0) fL Neut % (Auto) 69.6 (16.0-70.0) % Lymph % (Auto) 20.2 (9.0-44.0) % [place] % (Auto) 7.2 (0.0-8.0) % Eos % (Auto) 2.4 (0.0-4.0) % Baso % (Auto) 0.6 (0.0-2.0) % Neut # (Auto) 7.5 (1.8-7.7) th/mm3 Lymph # (Auto) 2.2 (1.0-4.8) th/mm3 [place] # (Auto) 0.8 (0.0-0.9) th/mm3 Eos # (Auto) 0.3 (0.0-0.4) th/mm3 Baso # (Auto) 0.1 (0.0-0.2) th/mm3 WBC Differential . Differential Comment Auto diff final PT 12.4 H (9.8-11.6) sec INR 1.2 Ratio APTT 40.3 H (24.3-30.1) sec Sodium 130 L (136-145) meq/L Potassium 3.9 (3.5-5.1) meq/L Chloride 95 L (98-107) meq/L Carbon Dioxide 22.4 (21.0-32.0) meq/L Anion Gap 13 (5-15) meq/L BUN 11 (7-18) mg/dL Creatinine 0.95 (0.50-1.00) mg/dL Estimated GFR 57 L (>89) mL/min Random Glucose 128 H (74-106) mg/dL Calcium 9.2 (8.5-10.1) mg/dL Magnesium 2.1 (1.5-2.5) mg/dL Total Creatine Kinase 102 (26-192) U/L CK-MB (CK-2) 1.3 (0.5-3.6) ng/mL Troponin I Less than 0.02 L (0.02-0.05) ng/mL Imaging Data Radiologist's impression: Chest X-Ray 09/16/17 17:55 CONCLUSION: Mild suspected atelectasis or consolidation at the left base. Discharge Plan Discharge Disposition Patient Disposition: 30 Still Patient Discharge Condition Condition: Stable Discharge Details Diagnosis: Chest pain, Atrial fibrillation with RVR Physicians Team ED Provider: Salbador Martinez Primary Care Provider: Bhupendra Fuchs Rxs /Orders / Referrals /Forms Prescriptions: No Action losartan 50 mg Tablet 50 mg PO DAILY RF: 0 atorvastatin 20 mg Tablet 20 mg PO DAILY RF: 0 atenolol 25 mg Tablet 12.5 mg PO DAILY RF: 0 clopidogrel [Plavix] 75 mg Tablet 75 mg PO DAILY RF: 0 amiloride 5 mg Tablet 5 mg PO DAILY RF: 0 temazepam 30 mg Capsule 1 cap PO DAILY PRN (Reason: Sleep) RF: 0 ascorbic acid (vitamin C) [Vitamin C] 250 mg Tablet 250 mg PO DAILY RF: 0 vitamin B complex [B Complex-Vitamin B12] Tablet 1 tab PO DAILY RF: 0 montelukast 10 mg Tablet 10 mg PO QPM RF: 0 diltiazem HCl 180 mg Capsule,Ext.Rel 24h Degradable 180 mg PO DAILY RF: 0 calcium carbonate-vit D3-min [Calcium 600 + Minerals] 600 mg calcium- 200 unit Tablet 1 tab PO DAILY RF: 0 ropinirole 12 mg Tablet Extended Release 24 Hr 24 mg PO DAILY PRN (Reason: Restless Leg(S)) RF: 0 apixaban [Eliquis] 5 mg Tablet 5 mg PO BID RF: 0 gabapentin 300 mg PO TID RF: 0 zoledronic [id number] [Reclast] 5 mg/100 mL Piggyback 5 mg IV DIRECTED RF: 0 Discharge Instructions Patient Printed Instructions: Chest Pain (ED) Discharge Interventions Interventions: Vital Signs Last Done: 09/16/17 17:42 Status ED Status: Admitted Observation Patient
[2017-09-16] MEDS ORDERED: dilTIAZem 60 MG Tablet PO ONE (18:15)
--- NOTE | 2017-09-16 18:23 | XR ---
EXAM DATE: 09/16/2017 6:17 PM EDT AGE/SEX: 81 years / Female INDICATIONS: Chest pain. CLINICAL DATA: This is the patient's initial encounter. Patient reports that signs and symptoms have been present for 1 day and indicates a pain score of 7/10. MEDICAL/SURGICAL HISTORY: . Hypertension. Hypercholesterolemia. Diverticulitis. Peripheral neur opathy. CVA. COPD. Hiatal hernia. GERD. Lung cancer. . Right upper lobectomy. Bilateral Croft's veronica sara and repair COMPARISON: [facility], XR CHEST PA AND LAT, 05/07/2015. . FINDINGS: The heart size is upper limits of normal. There is some mild increased density at the left base. The right lung is grossly clear. A significant effusion is not seen on this AP portable chest x-ray. CONCLUSION: Mild suspected atelectasis or consolidation at the left base. Electronically signed by: Vincent Burns MD 09/16/2017 6:21 PM EDT
[2017-09-16 18:28] LABS: Baso # (Auto) 0.1 th/mm3 (0.0-0.2); Baso % (Auto) 0.6 % (0.0-2.0); Eos # (Auto) 0.3 th/mm3 (0.0-0.4); Eos % (Auto) 2.4 % (0.0-4.0); Hematocrit 33.5 % (35.0-46.0); Hemoglobin 11.6 gm/dL (11.6-15.3); Lymph # (Auto) 2.2 th/mm3 (1.0-4.8); Lymph % (Auto) 20.2 % (9.0-44.0); Mean Corpuscular HGB Conc 34.6 % (32.0-36.0); Mean Corpuscular Hemoglobin 31.9 pg (27.0-34.0); Mean Corpuscular Volume 92.3 fL (80.0-100.0); Mean Platelet Volume 7.6 fL (7.0-11.0); Mono # (Auto) 0.8 th/mm3 (0.0-0.9); Mono % (Auto) 7.2 % (0.0-8.0); Neut # (Auto) 7.5 th/mm3 (1.8-7.7); Neut % (Auto) 69.6 % (16.0-70.0); Platelet Count 382 th/mm3 (150-450); Red Blood Count 3.63 mil/mm3 (4.00-5.30); Red Cell Distribution Width 14.2 % (11.6-17.2); White Blood Count 10.7 th/mm3 (4.0-11.0)
[2017-09-16 18:34] LABS: Activated Partial Thrombo Time 40.3 sec (24.3-30.1); INR 1.2 Ratio; Prothrombin Time 12.4 sec (9.8-11.6)
[2017-09-16 18:38] LABS: Anion Gap 13 meq/L (5-15); Blood Urea Nitrogen 11 mg/dL (7-18); Calcium 9.2 mg/dL (8.5-10.1); Carbon Dioxide 22.4 meq/L (21.0-32.0); Chloride 95 meq/L (98-107); Glomerular Filtration Rate 57 mL/min (>89); Glucose,Random 128 mg/dL (74-106); Magnesium 2.1 mg/dL (1.5-2.5); Potassium 3.9 meq/L (3.5-5.1); Sodium 130 meq/L (136-145)
[2017-09-16 18:42] LABS: Creatine Kinase 102 U/L (26-192)
[2017-09-16 18:54] LABS: Creatine Kinase MB 1.3 ng/mL (0.5-3.6)
[2017-09-16] MEDS ORDERED: Acetaminophen 325 MG Tablet PO PRN (19:50)
[2017-09-16] MEDS ORDERED: Temazepam 15 MG Capsule PO PRN (19:50)
[2017-09-16] MEDS ORDERED: Bisacodyl 10 MG Supp RECTAL PRN (19:50)
[2017-09-16] MEDS ORDERED: Morphine Inj 4 MG/ML Vial IV.PUSH PRN (19:52)
--- NOTE | 2017-09-16 19:53 | P.HPIM ---
History of Present Illness Primary Care Physician: Bhupendra Fuchs MD History of Present Illness: This is a 81-year-old female with a PMH of HTN and A. fib on Eliquis who presented to the ER with complaints of chest pain and palpitations. States symptoms started earlier this afternoon. Took her BP and noted to have systolic BP 100 w/ HR 160's. Follows w/ Dr. Lugo as outpatient, no recent changes to medications. Denies fever, chills, cough or SOB. Chest pain intermittent, moderate, 7/10, radiates to left shoulder. On arrival, BP 126/80 , HR 122, O2 sat 98% on RA, Afebrile. CBC unremarkable. INR 1.2. Chemistry essentially unremarkable except for GFR 57. Troponin negative. S/p Cardizem 30mg PO in ER w/ HR now 60-70's. Currently chest pain free. - Diagnosis (1) Atrial fibrillation with RVR (2) Chest pain Inpatient Certification: I certify that the inpatient services were ordered in accordance with Medicare regulations governing the order. This includes certification that hospital inpatient services are reasonable and necessary and in the case of services not specified as inpatient-only under 42 CFR 419.22(n), that they are appropriately provided as inpatient services in accordance to with the 2-midnight benchmark under 43 CFR 412.3(e) Review of Systems All other systems reviewed negative except as stated in HPI PMFSH - History History Provided By: Patient - Medical History Medical History: Medical History (Last Updated 09/12/17 @ 14:20 by Love Red) Asthma COPD (chronic obstructive pulmonary disease) Hyperlipemia Hypertension Lung cancer Osteoarthritis Osteoporosis - Tobacco History Second Hand Smoke Exposure: No Tobacco Use In Past 30 Days: No Smoking Status: Never smoker - Alcohol History How Often Do You Have a Drink Containing Alcohol: Never - Substance Use History Substance History: No History of Abuse - Travel History Recent Travel in the [place] Within the Last 8 Weeks: No Recent Travel Out of the Country Within the Last 8 Weeks: No - Immunization History Tetanus Immunization: <5 Years Hx Influenza Vaccine This Season: Yes Medications and Allergies Active Medications: Active Medications Sodium Chloride (Ns Flush) 2 ml IV.FLUSH UNSCH PRN PRN Reason: FLUSH AFTER USING IV ACCESS Allergies Allergy/AdvReac Type Severity Reaction Status Date / Time cefaclor Allergy Severe HIVES Verified 09/12/17 14:03 Home Medications Medication Instructions Recorded Confirmed Type amiloride 5 mg PO DAILY 09/12/17 09/12/17 History apixaban [Eliquis] 5 mg PO BID 09/12/17 09/12/17 History ascorbic acid (vitamin C) [Vitamin 250 mg PO DAILY 09/12/17 09/12/17 History C] atenolol 12.5 mg PO DAILY 09/12/17 09/12/17 History atorvastatin 20 mg PO DAILY 09/12/17 09/12/17 History calcium carbonate-vit D3-min 1 tab PO DAILY 09/12/17 09/12/17 History [Calcium 600 + Minerals] clopidogrel [Plavix] 75 mg PO DAILY 09/12/17 09/12/17 History diltiazem HCl 180 mg PO DAILY 09/12/17 09/12/17 History gabapentin 300 mg PO TID 09/12/17 09/12/17 History losartan 50 mg PO DAILY 09/12/17 09/12/17 History montelukast 10 mg PO QPM 09/12/17 09/12/17 History ropinirole 24 mg PO DAILY PRN 09/12/17 09/12/17 History temazepam 1 cap PO DAILY PRN 09/12/17 09/12/17 History vitamin B complex [B 1 tab PO DAILY 09/12/17 09/12/17 History Complex-Vitamin B12] zoledronic avjf-voumkldf-pjtiv 5 mg IV DIRECTED 09/12/17 09/12/17 History [Reclast] Exam Vital signs: Vital Signs 09/16/17 17:38 09/16/17 17:42 09/16/17 18:09 Temperature 97.8 F Pulse Rate 122 H 119 H Respiratory Rate 15 18 Blood Pressure 139/58 L 126/88 Pulse Oximetry 98 99 97 09/16/17 19:48 Temperature Pulse Rate 70 Respiratory Rate 16 Blood Pressure 102/56 L Pulse Oximetry 97 Intake & Output 09/16/17 09/16/17 09/17/17 06:59 18:59 06:59 Weight 54.5 kg Narrative: PE: GENERAL: Extremely pleasant elderly white female in no acute distress. HEENT: PERRLA, EOMI. No scleral icterus or conjunctival pallor. No lid lag or facial droop. CARDIOVASCULAR: Irregularly irregular, in A. fib, HR 70s. No obvious murmurs to auscultation. No chest tenderness to palpation. RESPIRATORY: No obvious rhonchi or wheezing. Clear to auscultation. Breath sounds equal bilaterally. GASTROINTESTINAL: Abdomen soft, non-tender, nondistended. BS normal. MUSCULOSKELETAL: Extremities without clubbing, cyanosis, or edema. No obvious deformities. NEUROLOGICAL: Awake, alert and oriented x4. No focal neurologic deficits. Moving both upper and lower extremities spontaneously. Results - Labs CBC & Chem 7: 09/16/17 18:10 09/16/17 18:10 Labs: Short CBC 09/16/17 Range/Units 18:10 WBC 10.7 (4.0-11.0) th/mm3 Hgb 11.6 (11.6-15.3) gm/dL Hct 33.5 L (35.0-46.0) % Plt Count 382 (150-450) th/mm3 BMP 09/16/17 18:10 Sodium 130 L Potassium 3.9 Chloride 95 L Carbon Dioxide 22.4 BUN 11 Creatinine 0.95 Calcium 9.2 Cardiac Enzymes 09/16/17 Range/Units 18:10 Total Creatine Kinase 102 (26-192) U/L CK-MB (CK-2) 1.3 (0.5-3.6) ng/mL Troponin I Less than 0.02 L (0.02-0.05) ng/mL - Imaging Impressions Chest X-Ray 09/16/17 17:55 CONCLUSION: Mild suspected atelectasis or consolidation at the left base. Caprini VTE Risk Assessment Caprini VTE Risk Assessment: Moderate/High Risk (score >= 2) Caprini Risk Assessment Model: Point Value = 1 Point Value = 2 Point Value = 3 Point Value = 5 Age 41-60 Minor surgery BMI > 25 kg/m2 Swollen legs Varicose veins or History of unexplained or recurrent spontaneous Oral contraceptives or hormone replacement Sepsis (< 1 month) Serious lung disease, including pneumonia (< 1 month) Abnormal pulmonary function Acute myocardial infarction Congestive heart failure (< 1 month) History of inflammatory bowel disease Medical patient at bed rest Age 61-74 Arthroscopic surgery Major open surgery (> 45 min) Laparoscopic surgery (> 45 min) Malignancy Confined to bed (> 72 hours) Immobilizing plaster cast Central venous access Age >= 75 History of VTE Family history of VTE Factor V Leiden Prothrombin [id number] Lupus anticoagulant Anticardiolipin antibodies Elevated serum homocysteine Heparin-induced thrombocytopenia Other congenital or acquired thrombophilia Stroke (< 1 month) Elective arthroplasty Hip, pelvis, or leg fracture Acute spinal cord injury (< 1 month) Prophylaxis Regimen: Total Risk Factor Score Risk Level Prophylaxis Regimen 0-1 Low Early ambulation 2 Moderate Order ONE of the following: *Sequential Compression Device (SCD) *Heparin 5000 units SQ BID 3-4 Higher Order ONE of the following medications: *Heparin 5000 units SQ TID *Enoxaparin/Lovenox 40 mg SQ daily (WT < 150 kg, CrCl > 30 mL/min) *Enoxaparin/Lovenox 30 mg SQ daily (WT < 150 kg, CrCl > 10-29 mL/min) *Enoxaparin/Lovenox 30 mg SQ BID (WT < 150 kg, CrCl > 30 mL/min) AND/OR *Sequential Compression Device (SCD) 5 or more Highest Order ONE of the following medications: *Heparin 5000 units SQ TID (Preferred with Epidurals) *Enoxaparin/Lovenox 40 mg SQ daily (WT < 150 kg, CrCl > 30 mL/min) *Enoxaparin/Lovenox 30 mg SQ daily (WT < 150 kg, CrCl > 10-29 mL/min) *Enoxaparin/Lovenox 30 mg SQ BID (WT < 150 kg, CrCl > 30 mL/min) AND *Sequential Compression Device (SCD) Assessment and Plan - Assessment (1) Atrial fibrillation with RVR Code(s): I48.91 - Unspecified atrial fibrillation Status: Acute (2) Chest pain Code(s): R07.9 - Chest pain, unspecified Status: Acute - Plan A/P: 1. A-fib w/ RVR: h/o A-fib, episode of RVR w/ HR 160's on arrival, s/p Cardizem 30mg PO x1 in ER w/ improvement, HR now 70's. Follows w/ Dr. Lugo as outpatient, no recent changes to medications. Admit for Observation, telemetry, resume home medications, check serial cardiac enzymes to eval for underlying ischemia. Resume Eliquis. 2. Chest Pain: Likely secondary to above, initial trop negative, currently chest pain free. Telemetry, check serial cardiac enzymes, Statin, B-Olena, ASA. 3. DVT Prophylaxis: On Eliquis 4. Social work for d/c planning as needed. 5. Case discussed w/ ER physician at length, labs/records/imaging reviewed by me. (2) Chest pain Qualifiers: Chest pain type: unspecified Qualified Code(s): R07.9 - Chest pain, unspecified
[2017-09-16] MEDS: Senna/Docusate Sodium 8.6/50 MG Tablet PO SCH (23:16)
[2017-09-17 07:22] LABS: Baso % (Auto) 0.3 % (0.0-2.0); Eos # (Auto) 0.3 th/mm3 (0.0-0.4); Eos % (Auto) 3.1 % (0.0-4.0); Hematocrit 33.6 % (35.0-46.0); Hemoglobin 11.2 gm/dL (11.6-15.3); Lymph # (Auto) 0.9 th/mm3 (1.0-4.8); Lymph % (Auto) 8.5 % (9.0-44.0); Mean Corpuscular HGB Conc 33.3 % (32.0-36.0); Mean Corpuscular Volume 90.1 fL (80.0-100.0); Mean Platelet Volume 7.6 fL (7.0-11.0); Mono # (Auto) 0.6 th/mm3 (0.0-0.9); Mono % (Auto) 6.1 % (0.0-8.0); Neut # (Auto) 8.5 th/mm3 (1.8-7.7); Platelet Count 388 th/mm3 (150-450); Red Blood Count 3.73 mil/mm3 (4.00-5.30); Red Cell Distribution Width 13.9 % (11.6-17.2); White Blood Count 10.4 th/mm3 (4.0-11.0)
[2017-09-17 08:27] LABS: Alanine Aminotransferase 13 U/L (10-53); Albumin 2.4 g/dL (3.4-5.0); Alkaline Phosphatase 90 U/L (45-117); Anion Gap 10 meq/L (5-15); Aspartate Aminotransferase 21 U/L (15-37); Blood Urea Nitrogen 8 mg/dL (7-18); Calcium 8.7 mg/dL (8.5-10.1); Carbon Dioxide 23.5 meq/L (21.0-32.0); Chloride 104 meq/L (98-107); Glomerular Filtration Rate 86 mL/min (>89); Glucose,Random 79 mg/dL (74-106); Sodium 137 meq/L (136-145); Total Protein 6.9 g/dL (6.4-8.2)
[2017-09-17] MEDS ORDERED: Atenolol 25 MG Tablet PO SCH (09:00)
[2017-09-17] MEDS ORDERED: Non-Formulary Drug (Diltiazem Hcl [Diltiazem Hcl] 180 MG) PO SCH (09:00)
[2017-09-17] MEDS ORDERED: dilTIAZem CD 180 MG Capsule PO SCH (09:00)
[2017-09-17] MEDS: Senna/Docusate Sodium 8.6/50 MG Tablet PO SCH (09:11)
--- NOTE | 2017-09-17 13:29 | P.PNIM ---
Subjective Interval history: Patient reports chest pain has resolved, says she feels like going home. She says she was worried that her blood pressure was low this morning did not want to take her medications. Physical Exam Vital signs: Vital Signs 09/16/17 17:38 09/16/17 17:42 09/16/17 18:09 Temperature 97.8 F Pulse Rate 122 H 119 H Respiratory Rate 15 18 Blood Pressure 139/58 L 126/88 Pulse Oximetry 98 99 97 09/16/17 19:48 09/16/17 21:55 09/16/17 22:25 Temperature 97.8 F Pulse Rate 70 77 66 Respiratory Rate 16 16 17 Blood Pressure 102/56 L 106/56 L 100/46 L Pulse Oximetry 97 97 99 09/17/17 00:36 09/17/17 04:03 09/17/17 05:27 Temperature 98.2 F 98.0 F Pulse Rate 68 67 Respiratory Rate 16 16 Blood Pressure 102/48 L 114/52 L Pulse Oximetry 96 99 99 09/17/17 07:30 Temperature Pulse Rate Respiratory Rate Blood Pressure Pulse Oximetry 98 Intake & Output 09/16/17 09/17/17 09/17/17 18:59 06:59 18:59 Weight 54.5 kg Narrative: GENERAL: Appears comfortable. SKIN: Warm and dry. HEAD: Normocephalic. EYES: No scleral icterus. No injection or drainage. NECK: Supple, trachea midline. No JVD or lymphadenopathy. CARDIOVASCULAR: Regular rate and rhythm without murmurs, gallops, or rubs. However have reviewed telemetry with episodes of tachycardia. RESPIRATORY: Breath sounds equal bilaterally. No accessory muscle use. GASTROINTESTINAL: Abdomen soft, non-tender, nondistended. MUSCULOSKELETAL: No cyanosis, or edema. BACK: Nontender without obvious deformity. No CVA tenderness. Results - Labs CBC & Chem 7: 09/17/17 06:20 09/17/17 06:20 Laboratory Results - last 24 hr 09/16/17 09/16/17 09/16/17 18:10 18:10 18:10 WBC 10.7 RBC 3.63 L Hgb 11.6 Hct 33.5 L MCV 92.3 MCH 31.9 MCHC 34.6 RDW 14.2 Plt Count 382 MPV 7.6 Neut % (Auto) 69.6 Lymph % (Auto) 20.2 Emanuel % (Auto) 7.2 Eos % (Auto) 2.4 Baso % (Auto) 0.6 Neut # (Auto) 7.5 Lymph # (Auto) 2.2 Emanuel # (Auto) 0.8 Eos # (Auto) 0.3 Baso # (Auto) 0.1 WBC Differential . Differential Comment Auto diff final PT 12.4 H INR 1.2 APTT 40.3 H Sodium 130 L Potassium 3.9 Chloride 95 L Carbon Dioxide 22.4 Anion Gap 13 BUN 11 Creatinine 0.95 Estimated GFR 57 L Random Glucose 128 H Calcium 9.2 Magnesium 2.1 Total Bilirubin AST ALT Alkaline Phosphatase Total Creatine Kinase 102 CK-MB (CK-2) 1.3 Troponin I Less than 0.02 L Total Protein Albumin 09/16/17 09/17/17 09/17/17 23:37 06:20 06:20 WBC 10.4 RBC 3.73 L Hgb 11.2 L Hct 33.6 L MCV 90.1 MCH 30.0 MCHC 33.3 RDW 13.9 Plt Count 388 MPV 7.6 Neut % (Auto) 82.0 H Lymph % (Auto) 8.5 L Emanuel % (Auto) 6.1 Eos % (Auto) 3.1 Baso % (Auto) 0.3 Neut # (Auto) 8.5 H Lymph # (Auto) 0.9 L Emanuel # (Auto) 0.6 Eos # (Auto) 0.3 Baso # (Auto) 0.0 WBC Differential . Differential Comment Auto diff final PT INR APTT Sodium 137 Potassium 4.0 Chloride 104 D Carbon Dioxide 23.5 Anion Gap 10 BUN 8 Creatinine 0.66 Estimated GFR 86 L Random Glucose 79 Calcium 8.7 Magnesium Total Bilirubin 0.7 AST 21 ALT 13 Alkaline Phosphatase 90 Total Creatine Kinase CK-MB (CK-2) Troponin I Less than 0.02 L Total Protein 6.9 Albumin 2.4 L 09/17/17 06:20 WBC RBC Hgb Hct MCV MCH MCHC RDW Plt Count MPV Neut % (Auto) Lymph % (Auto) Emanuel % (Auto) Eos % (Auto) Baso % (Auto) Neut # (Auto) Lymph # (Auto) Emanuel # (Auto) Eos # (Auto) Baso # (Auto) WBC Differential Differential Comment PT INR APTT Sodium Potassium Chloride Carbon Dioxide Anion Gap BUN Creatinine Estimated GFR Random Glucose Calcium Magnesium Total Bilirubin AST ALT Alkaline Phosphatase Total Creatine Kinase CK-MB (CK-2) Troponin I Less than 0.02 L Total Protein Albumin - Imaging Impressions Chest X-Ray 09/16/17 17:55 CONCLUSION: Mild suspected atelectasis or consolidation at the left base. Assessment and Plan - Assessment (1) Atrial fibrillation with RVR Code(s): I48.91 - Unspecified atrial fibrillation Status: Acute (2) Chest pain Code(s): R07.9 - Chest pain, unspecified Status: Acute - Plan //A-fib w/ RVR: h/o A-fib, episode of RVR w/ HR 160's on arrival, s/p Cardizem 30mg PO x1 in ER w/ improvement, HR now 70's. Follows w/ Dr. Lugo as outpatient, no recent changes to medications. Admit for Observation, telemetry , resume home medications, check serial cardiac enzymes to eval for underlying ischemia. Resume Eliquis. = Reviewed telemetry this morning, with heart rates into the 130s. Due to borderline low blood pressure, will switch from atenolol/diltiazem to metoprolol twice daily. Consult cardiology. Continue to monitor on telemetry. // Chest Pain: Likely secondary to above, initial trop negative, currently chest pain free. Telemetry, check serial cardiac enzymes, Statin, B-Olena, ASA. = Likely demand mediated secondary to A. fib/RVR above. No further episodes. Troponin negt. // DVT Prophylaxis: On Eliquis Discussed Condition With: Patient, nurse Discharge Planning: Pending stability in heart rate, blood pressure. Cardiology consult pending. (2) Chest pain Qualifiers: Chest pain type: unspecified Qualified Code(s): R07.9 - Chest pain, unspecified
[2017-09-17] MEDS ORDERED: Metoprolol Tartrate 25 MG Tablet PO ONE (13:45)
--- NOTE | 2017-09-17 15:47 | MB ---
cc: Kavita Hairston MD DATE: 09/17/2017 REASON FOR CONSULTATION: Atrial fibrillation with biventricular response. HISTORY OF PRESENT ILLNESS: Mrs. Davila is a 81-year-old female with history of high blood pressure, atrial fibrillation, on anticoagulation, recurrent episode of tachyarrhythmia, admitted to the emergency room due to atrial fibrillation with biventricular response. Heart rate was around 160 beats per minute. Subsequently, Cardizem was given. Heart rate controlled and subsequently converted into sinus rhythm. I was consulted for further evaluation and management. The chart was reviewed. The patient was evaluated. ALLERGIES: CEFACLOR. SOCIAL HISTORY: Negative for smoking and drinking. FAMILY HISTORY: Noncontributory to current medical condition. MEDICATIONS: She is on acetaminophen. She is on Eliquis 5 mg twice a day. She is on aspirin 81 mg a day. She is on Lipitor 20 mg a day. She is on Reglan and Senokot. She is on Cardizem p.o. REVIEW OF SYSTEMS: Currently, she referred no chest pain, no chest discomfort, no palpitation. No fever. PHYSICAL EXAMINATION: GENERAL: Alert, fully oriented. VITAL SIGNS: Blood pressure currently is 121/58, pulse 60, respiratory rate 18. LUNGS: Ventilated. CARDIOVASCULAR: S1, S2. No gallop. No murmur. ABDOMEN: Soft. No mass. No bruits. EXTREMITIES: No edema. LABORATORY DATA: Electrocardiogram on admission shows atrial fibrillation with biventricular response. ST changes. Hemoglobin is 11.2, white blood cell 10.4. INR 1.2. Potassium is 4.0, creatinine is 0.66. Troponin less than 0.02. Magnesium 2.1. ASSESSMENT AND RECOMMENDATIONS: Mrs. Davila has a history of recurrent palpitations. She has atrial fibrillation with biventricular response. She said this is the first time the heart rate is so high and sustained for so long. Usually they resolve after an hour or so. Heart rate on hospitalization was around 160 beats per minute. She is already on anticoagulation. I had a long conversation with her. I discussed with her the option of medical management versus atrial fibrillation ablation. I am going to keep her on Eliquis. I will wait for the further decision by Dr. Lugo, who is a primary boiler operator helper for Mrs. Davila. After the conversation with her son in the morning and also with the patient, further decision will be taken about her management. I will monitor her in the meantime during hospitalization. Kavita Hairston MD HS/TL , 02:45 PM , 03:45 PM
--- NOTE | 2017-09-19 16:59 | ECG ---
Date Performed: 09/16/2017 Time Performed: 17:49:48 PTAGE: 81 years EKG: ATRIAL FIBRILLATION WITH RAPID VENTRICULAR RESPONSE NONSPECIFIC T-WAVE ABNORMALITY ABNORMAL RHYTHM ECG INTERPRETATION BASED ON A DEFAULT AGE OF 42 YEARS NO PREVIOUS TRACING DOCTOR: Kavita Hairston Interpretating Date/Time 09/19/2017 16:58:18
== END 2017-09-17 18:50 | disposition left against medical advice (07) ==
LOC: NEDA 17:34 → NEPE 17:34 → NEPFCDU 17:34
PROVIDERS: ADMIT Internal Medicine; ATTEND Internal Medicine
DX: E78.5 Hyperlipidemia, unspecified; M81.0 Age-related osteoporosis without current pathological fracture; Z79.01 Long term (current) use of anticoagulants; I10 Essential (primary) hypertension; M19.90 Unspecified osteoarthritis, unspecified site; R07.89 Other chest pain; J44.9 Chronic obstructive pulmonary disease, unspecified; Z79.899 Other long term (current) drug therapy; Z85.118 Personal history of other malignant neoplasm of bronchus and lung; I48.91 Unspecified atrial fibrillation